=== PATIENT | female | born 1990 | race Caucasian/White ===

== ENCOUNTER 2019-10-04 05:53 | Inpatient (IN) ==
[2019-10-04] MEDS ORDERED: Naloxone 0.4 MG/ML INJ IVP PRN (06:25)
[2019-10-04] MEDS ORDERED: Famotidine 20 MG/2 ML VIAL IVP PRN (06:25)
[2019-10-04] MEDS ORDERED: miSOPROStoL 25 MCG TABLET VG PRN (06:25)
[2019-10-04] MEDS ORDERED: Metoclopramide 10 MG/2 ML VIAL IVP PRN (06:25)
[2019-10-04] MEDS ORDERED: Ondansetron 4 MG/2 ML VIAL IVP PRN (06:25)
[2019-10-04] MEDS ORDERED: Ringers Solution, Lactated 1,000 ML IVC SCH (06:30)
[2019-10-04] MEDS ORDERED: Ringers Solution, Lactated 1,000 ML ONE (06:35)
[2019-10-04 06:52] LABS: Basophils % 0.5 %; Eosinophils # 0.1 K/mcL (0.0-0.6); Eosinophils % 1.1 %; Hematocrit 34.9 % (35.3-44.9); Hemoglobin 11.9 g/dL (11.5-15.4); Immature Granulocytes % 0.7 % (0-4); Lymphocytes # 1.1 K/mcL (0.6-4.6); Lymphocytes % 18.2 %; Mean Corpuscular HGB Conc 34.1 g/dL (31.6-35.5); Mean Corpuscular Hemoglobin 30.4 pg (28.0-33.3); Mean Corpuscular Volume 89.3 fL (83.0-100.0); Mean Platelet Volume 11.9 fL (9.4-12.4); Monocytes # 0.5 K/mcL (0.0-1.3); Monocytes % 8.8 %; Neutrophils # 4.3 K/mcL (1.6-8.9); Platelet Count 136 K/mcL (140-400); Red Blood Count 3.91 M/mcL (3.82-4.97); Red Cell Distribution Width 15.3 % (11.5-14.5); Segmented Neutrophils % 70.7 %; White Blood Count 6.1 K/mcL (4.3-11.1)
[2019-10-04] MEDS ORDERED: Ropivacaine/PF 0.2% 20 ML VIAL EP ONE (08:29)
[2019-10-04] MEDS ORDERED: *HR* FentaNYL (PF) 100 MCG/2 ML VIAL EP ONE (08:29)
[2019-10-04 09:12] LABS: Amphetamine Screen,Urine Negative ng/mL (Cutoff=1000); Barbiturate Screen,Urine Negative ng/mL (Cutoff=200); Benzodiazepines Screen,Urine Negative ng/mL (Cutoff=200); Cannabinoid Screen,Urine Negative ng/mL (Cutoff = 50); Cocaine Screen,Urine Negative ng/mL (Cutoff= 300); Opiate Screen,Urine Negative ng/mL (Cutoff=300); Phencyclidine Screen,Urine Negative ng/mL (Cutoff=25)
[2019-10-04] MEDS ORDERED: *HR* FentaNYL (PF) 100 MCG/2 ML VIAL ONE (11:30)
[2019-10-04] MEDS ORDERED: Ropivacaine/PF 0.2% 20 ML VIAL ONE (11:30)
[2019-10-04] MEDS: Epidural Premix (fent/bupiv) 110 ML EP SCH ×2 (11:55→17:33)
[2019-10-04] MEDS ORDERED: Oxytocin 20 units/ LR 1000 mL 20 UNIT/1,000 ML BAG IVC ONE ×2 (16:27→19:59)
[2019-10-04] MEDS ORDERED: Lidocaine 1% 20 ML MDV ONE (18:45)
[2019-10-04] MEDS ORDERED: Ibuprofen 600 MG TABLET PO ONE (20:00)
[2019-10-04] MEDS ORDERED: Lanolin 7 G OINT...G. TP PRN (21:38)
[2019-10-04] MEDS ORDERED: Benzocaine/Menthol 56 GM AEROSOL SPRAY TP PRN (21:38)
[2019-10-04] MEDS ORDERED: Acetaminophen 325 MG TABLET PO PRN (21:38)
[2019-10-04] MEDS ORDERED: *HR* HYDROcodone/Acet 5/325 mg TABLET PO PRN (21:38)
[2019-10-04] MEDS ORDERED: Oxytocin 20 units/ LR 1000 mL 20 UNIT/1,000 ML BAG IVC SCH (21:38)
[2019-10-05] MEDS: Ibuprofen 600 MG TABLET PO PRN ×2 (04:58→17:56)
[2019-10-05 09:10] LABS: Basophils % 0.2 %; Eosinophils % 0.1 %; Hematocrit 33.6 % (35.3-44.9); Hemoglobin 10.9 g/dL (11.5-15.4); Immature Granulocytes % 0.5 % (0-4); Lymphocytes # 0.8 K/mcL (0.6-4.6); Lymphocytes % 5.7 %; Mean Corpuscular HGB Conc 32.4 g/dL (31.6-35.5); Mean Corpuscular Hemoglobin 30.9 pg (28.0-33.3); Mean Corpuscular Volume 95.2 fL (83.0-100.0); Mean Platelet Volume 11.9 fL (9.4-12.4); Monocytes # 0.9 K/mcL (0.0-1.3); Monocytes % 6.2 %; Neutrophils # 12.5 K/mcL (1.6-8.9); Platelet Count 127 K/mcL (140-400); Red Blood Count 3.53 M/mcL (3.82-4.97); Red Cell Distribution Width 15.8 % (11.5-14.5); Segmented Neutrophils % 87.3 %
[2019-10-05 09:11] LABS: White Blood Count 14.3 K/mcL (4.3-11.1)
[2019-10-05] MEDS: Prenatal Vit/FA 1 EACH TABLET PO SCH (09:34)
[2019-10-06] MEDS: Ibuprofen 600 MG TABLET PO PRN (09:03)
[2019-10-06] MEDS: Prenatal Vit/FA 1 EACH TABLET PO SCH (09:03)
[2019-10-06 09:24] VITALS: BP 128/78
== END 2019-10-06 11:11 | disposition home or self-care (01) | DRG 807 ==
LOC: 1NENULAB 05:53 → 1NENUOBS 21:35
PROVIDERS: ADMIT Obstetrics & Gynecology; ATTEND Obstetrics & Gynecology